=== PATIENT | male | born 1995 | race American Indian/Alaskan Native ===

== ENCOUNTER 2016-12-14 10:54 | Emergency (ER) | payer OTHER ==
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
[2016-12-14] MEDS ORDERED: MOTRIN PO ONE (15:06)
[2016-12-14 15:24] VITALS: BP 114/82
== END 2016-12-14 15:25 | disposition home or self-care (01) ==
LOC: ED 10:54
DX: S39.012A Strain of muscle, fascia and tendon of lower back, initial encounter (principal); V49.49XA Driver injured in collision with other motor vehicles in traffic accident, initial encounter; Y92.488 Other paved roadways as the place of occurrence of the external cause; Y93.89 Activity, other specified; Y99.8 Other external cause status
CPT/HCPCS: 99282

== ENCOUNTER 2017-08-26 10:47 | Emergency (ER) | payer SELFPAY ==
[2017-08-26 11:46] VITALS: BP 110/73
--- NOTE | 2017-08-26 12:49 | Emergency Department Report ---
Minor Respiratory - HPI Chief Complaint: Sore Throat Stated Complaint: FATIGUE/SORE THROAT Time Seen by Provider: 08/26/17 12:48 Pain Location: Throat Minor Respiratory: Yes Rhinorrhea, Yes Sore Throat, Yes Able to Tolerate Fluids , No Ear Pain, No Cough, No Sick Contacts, No Hemoptysis, No Chest Pain, No Shortness of Breath, No Fever Other History: Assessment 22-year-old -English male that presents with a sore throat, fatigue, and headache for 4 days. Patient reports sore throat was the initial symptoms started on Thursday. He was taking Claritin and Malina- [place] plus with some improvement of symptoms. He felt better on Thursday but last night started losing his voice and sore throat returned. He started feeling hot and cold and lost his voice last night. He is only able to speak in a whisper. Denies fever, difficulty swallowing, shortness of breath, nausea or vomiting, chest pain, cough, and abdominal pain. ED Review of Systems ROS: Stated complaint: FATIGUE/SORE THROAT Other details as noted in HPI Constitutional: denies: chills, fever ENT: throat pain, other (hoarness). denies: ear pain, dental pain, hearing loss , epistaxis Respiratory: denies: cough, shortness of breath, wheezing Cardiovascular: denies: chest pain, palpitations Gastrointestinal: denies: abdominal pain, nausea, vomiting, diarrhea Neurological: headache. denies: weakness, paresthesias Psychiatric: denies: anxiety, depression ED Past Medical Hx - Past Medical History Previous Medical History?: No - Surgical History Past Surgical History?: No - Social History Smoking Status: Never Smoker Substance Use Type: None - Medications Home Medications: Home Medications Medication Instructions Recorded Confirmed Last Taken Type Cyclobenzaprine [Flexeril] 10 mg PO DAILY PRN #5 tablet 12/14/16 Unknown Rx Ibuprofen [Motrin 600 MG tab] 600 mg PO Q8H PRN #30 tablet 12/14/16 Unknown Rx Ibuprofen [Motrin 800 MG tab] 800 mg PO Q8HR PRN #15 tablet 08/26/17 Unknown Rx Penicillin V Potassium 500 mg PO BID #14 tablet 08/26/17 Unknown Rx Minor Respiratory Exam - Exam General: Vital signs noted. No distress. Alert and acting appropriately. HEENT: Yes Pharyngeal Erythema, Yes Moist Mucous Membranes, No Pharyngeal Exudates (erythematous swollen tonsils no exudate, uvula midline), No Rhinorrhea , No Conjuctival Injection, No Frontal Tenderness, No Maxillary Tenderness Ear: Neither TM Bulge, Neither TM Erythema, Neither EAC Pain, Neither EAC Discharge Neck: Yes Supple, No Adenopathy Lungs: Yes Good Air Exchange, No Wheezes, No Ronchi, No Stridor, No Cough, No Labored Respirations, No Retractions, No Use of Accessory Muscles, No Other Abnormal Lung Sounds Heart: Yes Regular, No Murmur Abdomen: Yes Normal Bowel Sounds, No Tenderness, No Peritoneal Signs Skin: No Rash, No Edema Neurologic: Alert and oriented, no deficits. Musculoskeletal: Unremarkable. ED Course Vital Signs 08/26/17 11:42 Temperature 97.8 F Pulse Rate 74 Respiratory 16 Rate Blood Pressure 110/73 O2 Sat by Pulse 98 Oximetry ED Medical Decision Making - Medical Decision Making This is a 22 y.o. male that presents with sore throat and right ear pain for 5 days. Patient examined by me and stable. No distress noted. Rapid strep obtained and negative. Vitals stable. Given bicillin I-A 1.2 mL IM once in ER. Start penicillin V 500 mg po bid x 7 days and ibuprofen 800 mg po q8h prn. Take tylenol or ibuprofen for pain and Cepacol or Chloraseptic spray. Susceptible of acute pharyngitis and laryngitis. Discussed plan with patient and he agreed with plan to treat outpatient. Discharged home. Return to work tomorrow. Follow up with PCP in 48-72 hours. Critical care attestation.: If time is entered above; I have spent that time in minutes in the direct care of this critically ill patient, excluding procedure time. ED Disposition Clinical Impression: Laryngitis Acute pharyngitis Qualifiers: Pharyngitis/tonsillitis etiology: unspecified etiology Qualified Code(s): J02.9 - Acute pharyngitis, unspecified Disposition: -01 TO HOME OR SELFCARE Is pt being admited?: No Does the pt Need Aspirin: No Condition: Stable Instructions: Pharyngitis (ED), Laryngitis (ED) Additional Instructions: Expect symptoms to improve within 3 or 4 days. There is no need for bed rest or isolation. Use Tylenol or ibuprofen for symptoms of sore throat, headache, and fever. Return to work in 24 hours of taking antibiotics. Follow up with Primary Care Provider in 48-72 hours. Prescriptions: Ibuprofen [Motrin 800 MG tab] 800 mg PO Q8HR PRN #15 tablet PRN Reason: Pain Penicillin V Potassium 500 mg PO BID #14 tablet Referrals: [facility] [Outside] - 3-5 Days [facility] [Outside] - 3-5 Days [facility] [Outside] - 3-5 Days Forms: Work/School Release Form(ED) Time of Disposition: 14:04 Print Language: GEORGIAN
== END 2017-08-26 14:26 | disposition home or self-care (01) ==
LOC: ED 10:47
DX: J04.0 Acute laryngitis (principal); J02.9 Acute pharyngitis, unspecified
CPT/HCPCS: 87116; 87430; 99282